=== PATIENT | male | born 1985 | race Caucasian/White ===

== ENCOUNTER 2023-04-10 12:36 | Inpatient (IN) ==
[2023-04-10] MEDS ORDERED: PHENERGAN INJ 25 MG IM PRN (13:31)
[2023-04-10] MEDS ORDERED: NS 1,000 ML IV 1,000 ML ONE (13:40)
[2023-04-10] MEDS: ZOSYN VIAL 3.375 GRAMS 3.375 G in NS 100 ML IV 100 ML IV SCH (14:07)
[2023-04-10] MEDS: NS 1,000 ML IV 1,000 ML IV SCH (14:07)
[2023-04-10] MEDS: NS 1,000 ML IV 1,000 ML IV ONE (14:07)
[2023-04-10] MEDS: ZOFRAN INJ 4 MG VIAL IVP PRN (14:08)
[2023-04-10 14:15] LABS: BASOPHILS # (AUTO) 0.1 X10^3/uL (0.0-0.1); BASOPHILS % (AUTO) 0.2 % (0.2-1.0); HEMATOCRIT 49.3 % (42.0-54.0); HEMOGLOBIN 16.4 g/dL (13.5-18.0); LYMPHOCYTES # (AUTO) 0.3 X10^3/uL (1.3-2.9); LYMPHOCYTES % (AUTO) 1.3 % (21.0-51.0); MEAN CORPUSCULAR HEMOGLOBIN 31.4 pg (27.0-34.0); MEAN CORPUSCULAR HGB CONC 33.1 g/dL (33.0-35.0); MEAN CORPUSCULAR VOLUME 94.6 fL (80.0-100.0); MEAN PLATELET VOLUME 8.7 fL (7.4-11.0); MONOCYTES # (AUTO) 0.6 x10^3/uL (0.3-0.8); MONOCYTES % (AUTO) 2.5 % (0.0-13.0); NEUTROPHILS # (AUTO) 25.1 x10^3/uL (2.2-4.8); PLATELET COUNT 307 X10^3/uL (150.0-450.0); RED BLOOD COUNT 5.22 X10^6/uL (4.7-6.0); RED CELL DISTRIBUTION WIDTH 14.4 % (11.6-16.5); WHITE BLOOD COUNT 26.2 X10^3/uL (3.6-10.0)
[2023-04-10 14:26] LABS: ALANINE AMINOTRANSFERASE 25 Units/L (12-78); ALBUMIN 4.2 g/dL (3.4-5.0); ALKALINE PHOSPHATASE 75 Units/L (46-116); ASPARTATE AMINO TRANSFERASE 12 Units/L (15-37); BLOOD UREA NITROGEN 16 mg/dL (7-18); CALCIUM 9.9 mg/dL (8.5-10.1); CARBON DIOXIDE 28.6 mmol/L (21-32); CHLORIDE 98 mmol/L (98-107); COR NA(FOR HYPERGLY) 140 mmol/L (136-145); CREATININE 1.56 mg/dL (0.70-1.30); GLUCOSE 129 mg/dL (65-99); POTASSIUM 4.5 mmol/L (3.5-5.1); SODIUM 139 mmol/L (136-145); eGFR NON BLACK RACES 53 (>60)
[2023-04-10 14:51] LABS: PLATELET MORPHOLOGY COMMENT NORMAL (NORMAL)
[2023-04-10 14:54] VITALS: BMI 26.2
[2023-04-10] MEDS: DILAUDID INJ IVP PRN (14:55)
[2023-04-10] MEDS ORDERED: NS 100 ML IV 100 ML ONE (16:37)
[2023-04-10 16:50] LABS: BILIRUBIN,URINE NEGATIVE (NEGATIVE); BLOOD/HEMOGLOBIN,URINE 1+ (NEGATIVE); GLUCOSE, URINE NEGATIVE (NEGATIVE); KETONES,URINE NEGATIVE (NEGATIVE); LEUKOCYTE ESTERASE ,URINE NEGATIVE (NEGATIVE); NITRITES,URINE NEGATIVE (NEGATIVE); PROTEIN,URINE 2+ (NEGATIVE); UROBILINOGEN,URINE NORMAL (NORMAL)
[2023-04-10 17:03] LABS: APPEARANCE,URINE CLEAR (CLEAR); COLOR,URINE YELLOW (YELLOW)
[2023-04-10 17:04] LABS: BACTERIA,URINE TRACE /HPF (NEGATIVE); HYALINE CASTS, URINE MODERATE /LPF (NEGATIVE); RBC,URINE 0-2 /HPF (0-3); SQUAMOUS EPITHELIAL CELL,UR RARE /HPF (NEGATIVE)
--- NOTE | 2023-04-10 17:11 | CT ---
EXAM:ABDCMEN/PELVIS WITH CONHISTORY:ABD PAIN;COMPARISON:NoneTECHNIQUE:CT of the abdomen and pelvis obtained with IV contrast. Dose reduction techniques including Automated Exposure Control (AEC) and adjustment of mA and kV were utilized.FINDINGS:The visualized portions of the lower thorax demonstrate no acute process.No acute osseous abnormality. Multilevel degenerative changes in the visualized spine.The liver, gallbladder, spleen, pancreas, bilateral adrenal glands, and bilateral kidneys demonstrate no acute process.No evidence of bowel obstruction. The appendix is dilated and thickened with significant amount of surrounding inflammatory changes in the right lower quadrant.The bladder is unremarkable. No free air. Likely reactive free fluid in the pelvis. Nonaneurysmal aorta.IMPRESSION:Acute uncomplicated appendicitis.Likely reactive free fluid in the pelvis.THIS IS AN ELECTRONICALLY VERIFIED FINAL REPORT04/10/2023 5:08 PM - Electronically signed by Tyson Molina MD
[2023-04-10] MEDS: TORADOL 30 MG VIAL IVP PRN (17:58)
[2023-04-11] MEDS ORDERED: HIBICLENS WASH ONE (05:17)
--- NOTE | 2023-04-11 05:31 | EKG ---
Test Reason : surgery Blood Pressure : */* mmHG Vent. Rate : 82 BPM Atrial Rate : 82 BPM P-R Int : 130 ms QRS Dur : 84 ms QT Int : 340 ms P-R-T Axes : 47 84 27 degrees QTc Int : 397 ms Normal sinus rhythm Normal ECG No previous ECGs available Confirmed by Haile Toledo MD ([id number]) on 04/11/2023 6:06:51 AM Referred By: Confirmed By: Haile Toledo MD
[2023-04-11] MEDS: HIBICLENS WASH EXT ONE (05:33)
[2023-04-11 06:01] LABS: BASOPHILS % (AUTO) 0.2 % (0.2-1.0); HEMATOCRIT 43.8 % (42.0-54.0); HEMOGLOBIN 14.6 g/dL (13.5-18.0); LYMPHOCYTES # (AUTO) 0.3 X10^3/uL (1.3-2.9); MEAN CORPUSCULAR HEMOGLOBIN 31.5 pg (27.0-34.0); MEAN CORPUSCULAR HGB CONC 33.3 g/dL (33.0-35.0); MEAN CORPUSCULAR VOLUME 94.8 fL (80.0-100.0); MEAN PLATELET VOLUME 8.5 fL (7.4-11.0); MONOCYTES # (AUTO) 0.4 x10^3/uL (0.3-0.8); MONOCYTES % (AUTO) 2.1 % (0.0-13.0); NEUTROPHILS # (AUTO) 15.8 x10^3/uL (2.2-4.8); NEUTROPHILS % (AUTO) 95.7 % (42.0-75.0); PLATELET COUNT 230 X10^3/uL (150.0-450.0); RED BLOOD COUNT 4.62 X10^6/uL (4.7-6.0); RED CELL DISTRIBUTION WIDTH 14.5 % (11.6-16.5); WHITE BLOOD COUNT 16.5 X10^3/uL (3.6-10.0)
--- NOTE | 2023-04-11 06:06 | RAD ---
EXAM: CHEST, 1 VIEW HISTORY: PRE OP-APPY ; COMPARISON: None FINDINGS: The cardiomediastinal silhouette is normal in size. No acute airspace disease. No pneumothorax or effusion. No acute osseous abnormality. IMPRESSION: No acute cardiopulmonary disease. THIS IS AN ELECTRONICALLY VERIFIED FINAL REPORT 04/11/2023 6:03 AM - Electronically signed by Tyson Molina MD
[2023-04-11 06:18] LABS: ALANINE AMINOTRANSFERASE 19 Units/L (12-78); ALBUMIN 3.1 g/dL (3.4-5.0); ALKALINE PHOSPHATASE 63 Units/L (46-116); ASPARTATE AMINO TRANSFERASE 12 Units/L (15-37); BLOOD UREA NITROGEN 25 mg/dL (7-18); CALCIUM 8.9 mg/dL (8.5-10.1); CARBON DIOXIDE 28.3 mmol/L (21-32); CHLORIDE 96 mmol/L (98-107); COR CA(FOR HYPOALB) 9.6 mg/dL (8.5-10.1); CREATININE 2.24 mg/dL (0.70-1.30); GLUCOSE 85 mg/dL (65-99); POTASSIUM 5.2 mmol/L (3.5-5.1); SODIUM 134 mmol/L (136-145); TOTAL PROTEIN 7.3 g/dL (6.4-8.2); eGFR NON BLACK RACES 35 (>60)
[2023-04-11 06:42] LABS: BAND NEUTROPHILS % 17 % (0-10); PLATELET MORPHOLOGY COMMENT NORMAL (NORMAL)
[2023-04-11] MEDS: LR 1,000 ML IV 1,000 ML IV ONE ×2 (07:57→09:18)
[2023-04-11] MEDS: DECADRON INJ ONE (08:17)
[2023-04-11] MEDS: ZEMURON 100 MG VIAL ONE (08:17)
[2023-04-11] MEDS: VERSED ONE (08:17)
[2023-04-11] MEDS: ZOFRAN INJ 4 MG VIAL ONE (08:17)
[2023-04-11] MEDS: PEPCID 20 MG VIAL ONE (08:17)
[2023-04-11] MEDS: DIPRIVAN VIAL 20 ML ONE (08:17)
[2023-04-11] MEDS ORDERED: SUPRANE ONE (08:17)
[2023-04-11] MEDS: FENTANYL VIAL INJ 100 mcg ONE (08:17)
[2023-04-11] MEDS: QUELICIN (OR ANECTINE) ONE (08:17)
[2023-04-11] MEDS: BRIDION ONE (08:17)
[2023-04-11] MEDS: ROBINUL ONE (08:17)
[2023-04-11] MEDS: NEO-SYNEPHRINE INJ ONE (08:30)
[2023-04-11] MEDS: BACTROBAN TOPICAL OINT ONE (08:36)
[2023-04-11] MEDS: OFIRMEV IV 1000 MG VIAL 1,000 MG/100 ML VIAL IV ONE (08:53)
[2023-04-11] MEDS: NS 500 ML IV 500 ML IV ONE (08:53)
[2023-04-11] MEDS: LR 1,000 ML IV 1,000 ML IV SCH (10:15)
[2023-04-11] MEDS: NS 1,000 ML IV 2,000 ML IV ONE (10:15)
[2023-04-11] MEDS: DILAUDID INJ IVP PRN (13:45)
[2023-04-11] MEDS: READI-CAT 2 ONE (18:58)
[2023-04-11] MEDS: OMNIPAQUE 350 mg/mL 100 mL BTL 100 ML ONE (18:58)
[2023-04-11] MEDS: PROTONIX INJ 40 MG VIAL IVP SCH (20:48)
[2023-04-12 05:56] LABS: BASOPHILS # (AUTO) 0.1 X10^3/uL (0.0-0.1); BASOPHILS % (AUTO) 0.4 % (0.2-1.0); EOSINOPHILS % (AUTO) 0.2 % (0.9-2.9); HEMATOCRIT 34.9 % (42.0-54.0); HEMOGLOBIN 11.6 g/dL (13.5-18.0); LYMPHOCYTES # (AUTO) 0.3 X10^3/uL (1.3-2.9); LYMPHOCYTES % (AUTO) 2.1 % (21.0-51.0); MEAN CORPUSCULAR HEMOGLOBIN 31.2 pg (27.0-34.0); MEAN CORPUSCULAR HGB CONC 33.1 g/dL (33.0-35.0); MEAN CORPUSCULAR VOLUME 94.2 fL (80.0-100.0); MEAN PLATELET VOLUME 8.7 fL (7.4-11.0); MONOCYTES # (AUTO) 0.3 x10^3/uL (0.3-0.8); MONOCYTES % (AUTO) 2.4 % (0.0-13.0); NEUTROPHILS # (AUTO) 12.2 x10^3/uL (2.2-4.8); NEUTROPHILS % (AUTO) 94.9 % (42.0-75.0); PLATELET COUNT 185 X10^3/uL (150.0-450.0); RED BLOOD COUNT 3.71 X10^6/uL (4.7-6.0); RED CELL DISTRIBUTION WIDTH 14.1 % (11.6-16.5); WHITE BLOOD COUNT 12.9 X10^3/uL (3.6-10.0)
[2023-04-12 06:13] LABS: ALANINE AMINOTRANSFERASE 29 Units/L (12-78); ALBUMIN 2.3 g/dL (3.4-5.0); ALKALINE PHOSPHATASE 58 Units/L (46-116); ASPARTATE AMINO TRANSFERASE 23 Units/L (15-37); BLOOD UREA NITROGEN 23 mg/dL (7-18); CALCIUM 8.6 mg/dL (8.5-10.1); CARBON DIOXIDE 30.9 mmol/L (21-32); CHLORIDE 97 mmol/L (98-107); CREATININE 1.53 mg/dL (0.70-1.30); GLUCOSE 93 mg/dL (65-99); POTASSIUM 4.3 mmol/L (3.5-5.1); SODIUM 133 mmol/L (136-145); TOTAL PROTEIN 6.3 g/dL (6.4-8.2); eGFR NON BLACK RACES 55 (>60)
[2023-04-12 06:16] LABS: PLATELET MORPHOLOGY COMMENT NORMAL (NORMAL)
--- NOTE | 2023-04-12 08:12 | DR.PROGNOT ---
HOSPITAL PROGRESS NOTE Progress Note for Day of: Progress Note Date: 04/12/23 Chief Complaint Chief Complaint: Still having significant abdominal pain, no nausea or vomiting and tolerating liquid diet. BUN and creatinine are coming down, 23 and 1.5. WBC 12.9. Patient is afebrile. Past Medical Family Social History Allergies: Allergies No Known Allergies Allergy (Verified 04/12/23 06:57) Vital Signs Vital Signs: Vital Signs Temperature 98.3 F Pulse Rate [Left Radial] 70 Respiratory Rate 18 Respiratory Rate 18 Respiratory Rate 18 Respiratory Rate 18 Respiratory Rate 20 Blood Pressure [Right Arm] 110/58 O2 Sat by Pulse Oximetry 96 Physical Exam Oriented: Normal Eyes: Normal Nose: Normal Respiratory: Normal Cardiovascular: Normal GI:Auscultation: Decreased GI: Tenderness: Other (Moderate diffuse abdominal tenderness with hypoactive bowel sounds.) Mood Description: Calm and Appropriate Speech Pattern: Clear and Appropriate Laboratory and Diagnostics 04/12/23 05:32 04/12/23 05:32 Labs: 04/10/23 14:03 Blood Blood Culture - Preliminary 04/10/23 13:56 Blood Blood Culture - Preliminary Laboratory WBC 12.9 X10^3/uL (3.6-10.0) H 04/12/23 05:32 RBC 3.71 X10^6/uL (4.7-6.0) L 04/12/23 05:32 Hgb 11.6 g/dL (13.5-18.0) L D 04/12/23 05:32 Hct 34.9 % (42.0-54.0) L 04/12/23 05:32 MCV 94.2 fL (80.0-100.0) 04/12/23 05:32 MCH 31.2 pg (27.0-34.0) 04/12/23 05:32 MCHC 33.1 g/dL (33.0-35.0) 04/12/23 05:32 RDW 14.1 % (11.6-16.5) 04/12/23 05:32 Plt Count 185 X10^3/uL (150.0-450.0) 04/12/23 05:32 Plt Count Comment Adequate (ADEQUATE) 04/12/23 05:32 MPV 8.7 fL (7.4-11.0) 04/12/23 05:32 Neut % (Auto) 94.9 % (42.0-75.0) H 04/12/23 05:32 Lymph % (Auto) 2.1 % (21.0-51.0) L 04/12/23 05:32 [place] % (Auto) 2.4 % (0.0-13.0) 04/12/23 05:32 Eos % (Auto) 0.2 % (0.9-2.9) L 04/12/23 05:32 Baso % (Auto) 0.4 % (0.2-1.0) 04/12/23 05:32 Neut # (Auto) 12.2 x10^3/uL (2.2-4.8) H 04/12/23 05:32 Lymph # (Auto) 0.3 X10^3/uL (1.3-2.9) L 04/12/23 05:32 [place] # (Auto) 0.3 x10^3/uL (0.3-0.8) 04/12/23 05:32 Eos # (Auto) 0.0 x10^3/uL (0.0-0.2) 04/12/23 05:32 Baso # (Auto) 0.1 X10^3/uL (0.0-0.1) 04/12/23 05:32 Absolute Nucleated RBC 0.0 /100WBC 04/12/23 05:32 Total Counted 100 04/12/23 05:32 Neutrophils % (Manual) 90 % (39-76) H 04/12/23 05:32 Band Neutrophils % 17 % (0-10) H 04/11/23 05:29 Lymphocytes % (Manual) 7 % (13-43) L 04/12/23 05:32 Monocytes % (Manual) 3 % (4-9) L 04/12/23 05:32 Plt Morphology Comment Normal (NORMAL) 04/12/23 05:32 RBC Morphology Normal (NORMAL) 04/12/23 05:32 Sodium 133 mmol/L (136-145) L 04/12/23 05:32 Corrected Sodium TNP 04/12/23 05:32 Potassium 4.3 mmol/L (3.5-5.1) 04/12/23 05:32 Chloride 97 mmol/L (98-107) L 04/12/23 05:32 Carbon Dioxide 30.9 mmol/L (21-32) 04/12/23 05:32 BUN 23 mg/dL (7-18) H 04/12/23 05:32 Creatinine 1.53 mg/dL (0.70-1.30) H 04/12/23 05:32 Est GFR (MDRD) Af Amer > 60 (>60) 04/12/23 05:32 Est GFR (MDRD) Non-Af 55 (>60) L 04/12/23 05:32 Glucose 93 mg/dL (65-99) 04/12/23 05:32 Lactic Acid 1.0 mmol/L (0.4-2.0) 04/10/23 13:56 Calcium 8.6 mg/dL (8.5-10.1) 04/12/23 05:32 Corrected Calcium 10.0 mg/dL (8.5-10.1) 04/12/23 05:32 Total Bilirubin 0.80 mg/dL (0.2-1.0) 04/12/23 05:32 AST 23 Units/L (15-37) 04/12/23 05:32 ALT 29 Units/L (12-78) 04/12/23 05:32 Alkaline Phosphatase 58 Units/L (46-116) 04/12/23 05:32 Total Protein 6.3 g/dL (6.4-8.2) L 04/12/23 05:32 Albumin 2.3 g/dL (3.4-5.0) L 04/12/23 05:32 Globulin 4.0 g/dL (2.5-4.5) 04/12/23 05:32 Albumin/Globulin Ratio 0.6 Ratio (1.1-2.1) L 04/12/23 05:32 Specimen Type Clean catch urine 04/10/23 16:41 Urine Color Yellow (YELLOW) 04/10/23 16:41 Urine Appearance Clear (CLEAR) 04/10/23 16:41 Urine pH 6.0 (5.0 - 8.0) 04/10/23 16:41 Ur Specific Accord 1.025 (1.000-1.030) 04/10/23 16:41 Urine Protein 2+ (NEGATIVE) 04/10/23 16:41 Urine Glucose (UA) Negative (NEGATIVE) 04/10/23 16:41 Urine Ketones Negative (NEGATIVE) 04/10/23 16:41 Urine Blood 1+ (NEGATIVE) 04/10/23 16:41 Urine Nitrite Negative (NEGATIVE) 04/10/23 16:41 Urine Bilirubin Negative (NEGATIVE) 04/10/23 16:41 Urine Urobilinogen Normal (NORMAL) 04/10/23 16:41 Ur Leukocyte Esterase Negative (NEGATIVE) 04/10/23 16:41 Urine RBC 0-2 /HPF (0-3) 04/10/23 16:41 Urine WBC None seen /HPF (0-5) 04/10/23 16:41 Ur Squamous Epith Cells Rare /HPF (NEGATIVE) 04/10/23 16:41 Amorphous Sediment Trace /HPF (NEGATIVE) 04/10/23 16:41 Urine Bacteria Trace /HPF (NEGATIVE) 04/10/23 16:41 Hyaline Casts Moderate /LPF (NEGATIVE) 04/10/23 16:41 Urine Mucus Few /HPF (NEGATIVE) 04/10/23 16:41 Ur Culture Indicated? No/not indicated 04/10/23 16:41 Assessment and Plan 1: Acute gangrenous appendicitis with peritonitis. Same IV antibiotics. On full liquid diet. 2: Dehydration secondary to the peritonitis and gangrenous appendicitis. Same IV fluid and IV antibiotics
[2023-04-12] MEDS ORDERED: LEXAPRO ONE (10:23)
[2023-04-12] MEDS: LEXAPRO PO SCH (10:29)
[2023-04-12] MEDS: PERCOCET TAB 5/325 MG PO PRN (17:06)
[2023-04-12] MEDS: COLACE CAP 100 MG PO ONE (20:36)
[2023-04-12] MEDS ORDERED: MIRALAX POWDER (1 DOSE 17 G) PO SCH (21:00)
[2023-04-12] MEDS ORDERED: COLACE CAP 100 MG PO SCH (21:00)
[2023-04-13 04:22] VITALS: O2SAT 96
[2023-04-13 05:24] LABS: BASOPHILS % (AUTO) 0.1 % (0.2-1.0); EOSINOPHILS # (AUTO) 0.1 x10^3/uL (0.0-0.2); EOSINOPHILS % (AUTO) 0.7 % (0.9-2.9); HEMATOCRIT 32.1 % (42.0-54.0); HEMOGLOBIN 10.7 g/dL (13.5-18.0); LYMPHOCYTES # (AUTO) 0.3 X10^3/uL (1.3-2.9); LYMPHOCYTES % (AUTO) 2.1 % (21.0-51.0); MEAN CORPUSCULAR HEMOGLOBIN 31.3 pg (27.0-34.0); MEAN CORPUSCULAR HGB CONC 33.4 g/dL (33.0-35.0); MEAN CORPUSCULAR VOLUME 93.7 fL (80.0-100.0); MEAN PLATELET VOLUME 8.4 fL (7.4-11.0); MONOCYTES # (AUTO) 0.6 x10^3/uL (0.3-0.8); MONOCYTES % (AUTO) 5.3 % (0.0-13.0); NEUTROPHILS # (AUTO) 11.2 x10^3/uL (2.2-4.8); NEUTROPHILS % (AUTO) 91.8 % (42.0-75.0); PLATELET COUNT 197 X10^3/uL (150.0-450.0); RED BLOOD COUNT 3.42 X10^6/uL (4.7-6.0); RED CELL DISTRIBUTION WIDTH 14.4 % (11.6-16.5); WHITE BLOOD COUNT 12.2 X10^3/uL (3.6-10.0)
[2023-04-13 05:32] LABS: ALANINE AMINOTRANSFERASE 43 Units/L (12-78); ALBUMIN 2.1 g/dL (3.4-5.0); ALKALINE PHOSPHATASE 60 Units/L (46-116); ASPARTATE AMINO TRANSFERASE 34 Units/L (15-37); BLOOD UREA NITROGEN 14 mg/dL (7-18); CALCIUM 8.5 mg/dL (8.5-10.1); CARBON DIOXIDE 27.2 mmol/L (21-32); CHLORIDE 101 mmol/L (98-107); CREATININE 1.04 mg/dL (0.70-1.30); GLUCOSE 99 mg/dL (65-99); SODIUM 138 mmol/L (136-145); eGFR NON BLACK RACES > 60 (>60)
[2023-04-13 05:50] LABS: PLATELET MORPHOLOGY COMMENT NORMAL (NORMAL)
[2023-04-13] MEDS ORDERED: LEXAPRO ONE (08:35)
[2023-04-13 08:41] VITALS: BP 130/63; PULSE 95; TEMP 97.8
[2023-04-13 08:43] VITALS: RESP 18
== END 2023-04-13 12:35 | disposition home or self-care (01) | DRG 399 ==
LOC: MED/SURG
PROVIDERS: ADMIT Obstetrics & Gynecology Obstetrics; ATTEND Obstetrics & Gynecology Obstetrics
PROC: APPYLAP (ICD-10-PCS; 2023-04-11 08:45)
DX: R10.84 Generalized abdominal pain; R50.9 Fever, unspecified; R11.2 Nausea with vomiting, unspecified; K35.31 Acute appendicitis with localized peritonitis and gangrene, without perforation; E86.0 Dehydration; R00.0 Tachycardia, unspecified